=== PATIENT | male | born 1960 | race Caucasian/White ===

== ENCOUNTER 2017-02-16 08:16 | Outpatient (RCR) | payer OTHER ==
[~2017-02-16 08:16] MED LIST: CYMBALTA 60MG60 MG PO; LEVOXYL0.1 MG PO; LEVOXYL0.112 MG PO; LIORESAL20 MG PO; NO HOME MEDICATIONS; NORCO 325 MG-51 TAB PO; PRIL40 PO; PRILOSEC 20MG20 MG PO; ULTRAM 50MG TAB50 MG PO; VALIUM 2MG T2 MG/TAB PO
== END 2017-02-28 07:45 | disposition home or self-care (01) ==
LOC: WSPT 08:16
DX: Z02.71 Encounter for disability determination (principal); G62.9 Polyneuropathy, unspecified; M16.0 Bilateral primary osteoarthritis of hip; G31.84 Mild cognitive impairment of uncertain or unknown etiology; G47.33 Obstructive sleep apnea (adult) (pediatric); M77.12 Lateral epicondylitis, left elbow; Z86.69 Personal history of other diseases of the nervous system and sense organs

== ENCOUNTER 2017-07-19 10:52 | Outpatient (RCR) | payer OTHER | END 2017-07-19 10:53 | LOC: WSPT 10:52 | DX: G62.89 Other specified polyneuropathies (principal); G61.0 Guillain-Barre syndrome; G31.84 Mild cognitive impairment of uncertain or unknown etiology; M25.552 Pain in left hip; M25.551 Pain in right hip ==